=== PATIENT | male | born 1990 ===

== ENCOUNTER 2017-05-05 19:26 | Emergency (ER) | payer OTHER ==
[2017-05-05 20:06] VITALS: RESP 18; TEMP 98.4
[2017-05-05] MEDS ORDERED: Fluorescein 1 mg Ophthalmic Strip OD ONE (20:12)
[2017-05-05] MEDS ORDERED: Tetracaine 0.5% Ophth 2 ML BOTTLE OD ONE (20:12)
[2017-05-05] MEDS ORDERED: Fluorescein 1 mg Ophthalmic Strip ONE (20:17)
[2017-05-05] MEDS ORDERED: Tetracaine 0.5% Ophth (OR ONLY) ONE (20:18)
[2017-05-05] MEDS ORDERED: Ophthalmic Irrigation, Soln ONE (20:39)
--- NOTE | 2017-05-05 20:44 | C.PDOC ---
History Of Present Illness 27 y/o male presents to ED with complaint of right eye pain since this afternoon. Patient states around 11am he was drilling into concrete and felt something go in his eye. Patient was not wearing safety glasses at the time of incident and denies using contacts, vision changes or any other complaints at this time. Time Seen by Provider: 05/05/17 20:04 Chief Complaint (Nursing): ENT Problem History Per: Patient History/Exam Limitations: no limitations Onset/Duration Of Symptoms: Hrs Current Symptoms Are (Timing): Still Present Associated Symptoms: Pain, FB Sensation Past Medical History Reviewed: Historical Data, Nursing Documentation, Vital Signs Vital Signs: Last Vital Signs Temp 98.4 F 05/05/17 20:04 Pulse 72 05/05/17 21:02 Resp 18 05/05/17 21:02 BP 124/72 05/05/17 21:02 Pulse Ox 99 05/05/17 23:19 Family History: States: No Known Family Hx - Social History Hx Alcohol Use: Yes Hx Substance Use: No Review Of Systems Constitutional: Negative for: Weakness Eyes: Positive for: Pain. Negative for: Vision Change Skin: Negative for: Rash Physical Exam - Physical Exam Appears: Non-toxic, No Acute Distress Skin: Normal Color, Warm Head: Atraumatic, Normacephalic Eye(s): bilateral: PERRL, EOMI, right: Other (Foreign body at 4'oclock over Iris ) Nose: Normal Oral Mucosa: Moist Chest: Symmetrical Respiratory: No Accessory Muscle Use Neurological/Psych: Oriented x3, Other (No focal deficits) ED Course And Treatment O2 Sat by Pulse Oximetry: 99 (RA) Pulse Ox Interpretation: Normal Progress Note: Visual Acudity 20/20. Foreign body was removed from right eye with Q-tip and eye was irrigated. Patient was discharged and instructed to follow up with Optomalogy in 2 days Reevaluation Time: 20:30 Reassessment Condition: Improved Disposition - Disposition Referrals: Waldemar Hernandez MD [Staff Provider] - Disposition: HOME/ ROUTINE Disposition Time: 20:41 Condition: STABLE Additional Instructions: Follow up with eye doctor in 1-2 days. Return to ER if symptoms persist or worsen. Prescriptions: Tobramycin 0.3% [Tobramycin 5 Ml] 1 drop OP Q4 #1 bottle Instructions: Eye Foreign Body (ED) - Clinical Impression Clinical Impression: Foreign body in eye, Corneal abrasion - Scribe Statement The provider has reviewed the documentation as recorded by the Juan Fibrush Mcgarry All medical record entries made by the Juan Fibrush were at my direction and personally dictated by me. I have reviewed the chart and agree that the record accurately reflects my personal performance of the history, physical exam, medical decision making, and the department course for this patient. I have also personally directed, reviewed, and agree with the discharge instructions and disposition.
[2017-05-05 21:03] VITALS: BP 124/72; PULSE 72
[2017-05-05 23:15] VITALS: O2SAT 99
== END 2017-05-05 21:03 | disposition home or self-care (01) ==
LOC: C.ER 19:26
DX: T15.01XA Foreign body in cornea, right eye, initial encounter (principal); X58.XXXA Exposure to other specified factors, initial encounter